=== PATIENT | female | born 1955 | race Caucasian/White ===

== ENCOUNTER 2025-01-07 11:04 | Inpatient (IN) | payer MEDICARE, MEDICAID ==
[~2025-01-07] VITALS: Ht 149.9 cm; Wt 63.8 kg
[2025-01-07 15:31] LABS: BASOPHILS # (AUTO) 0.1 X10'3 (0-0.2); BASOPHILS % (AUTO) 0.9 % (0-1); EOSINOPHILS # (AUTO) 0.2 X10'3 (0-0.9); EOSINOPHILS % (AUTO) 2.6 % (0-6); HEMATOCRIT 43.1 % (35.0-45.0); HEMOGLOBIN 14.8 g/dl (12.0-16.0); LYMPHOCYTES # (AUTO) 1.4 X10'3 (1.1-4.8); LYMPHOCYTES % (AUTO) 21.2 % (21-51); MEAN CORPUSCULAR HEMOGLOBIN 34.5 PG (27.0-31.0); MEAN CORPUSCULAR HGB CONC 34.4 g/dL (33.0-36.5); MEAN CORPUSCULAR VOLUME 100.5 FL (78-98); MEAN PLATELET VOLUME 6.7 FL (7.4-10.4); MONOCYTES # (AUTO) 0.7 X10'3 (0-0.9); MONOCYTES % (AUTO) 10.1 % (2-12); NEUTROPHILS # (AUTO) 4.3 X10'3 (1.8-7.7); NEUTROPHILS % (AUTO) 65.2 % (42-75); PLATELET COUNT 200 X10'3 (140-440); RED BLOOD COUNT 4.29 X10'6 (4.20-5.60); RED CELL DISTRIBUTION WIDTH 13.9 % (11.5-14.5); WHITE BLOOD COUNT 6.6 X10'3 (4.5-11.0)
[2025-01-07 15:47] LABS: ALANINE AMINOTRANSFERASE 15 U/L (12-78); ALBUMIN 3.9 G/DL (3.4-5.0); ALBUMIN/GLOBULIN RATIO 1.1 (1.1-1.5); ALKALINE PHOSPHATASE 75 IU/L (46-116); ANION GAP 8 (8-16); ASPARTATE AMINO TRANSFERASE 21 U/L (10-37); BILIRUBIN,TOTAL 1.1 MG/DL (0.1-1.0); BLOOD UREA NITROGEN 18 MG/DL (7-18); BUN/CREATININE RATIO 20.7 (10.0-20.0); CHLORIDE 107 MMOL/L (99-107); CREATININE 0.87 MG/DL (0.40-0.90); GLUCOSE 92 MG/DL (70-104); MAGNESIUM 2.2 MG/DL (1.5-2.4); POTASSIUM 4.6 MMOL/L (3.5-5.1); PRO BRAIN NATRIURETIC PEPTIDE 200 PG/ML (0-125); SODIUM 141 MMOL/L (135-145); TOTAL CARBON DIOXIDE 25.6 MMOL/L (24-32); TOTAL PROTEIN 7.5 G/DL (6.4-8.2); eCRCL 40 ML/MIN; eGFR 64 ML/MIN
[2025-01-07] MEDS ORDERED: nitroGLYCERIN 0.4mg SUBLingual tab SL PRN (19:30)
[2025-01-07] MEDS ORDERED: aminophylline 500mg/20ml vial IV PRN (19:30)
[2025-01-07] MEDS ORDERED: metoprolol tartrate 1mg/ml inj IV PRN (19:30)
[2025-01-07] MEDS ORDERED: GADOTERATE MEGLUMINE 7.5 MMOL/15 ML VIAL IV ONE (21:31)
[2025-01-07] MEDS ORDERED: acetaminophen 325mg tablet PO PRN ×2 (21:50)
[2025-01-07] MEDS ORDERED: magnesium sulf-water 4G/100mL 100 ML IV PRN (21:50)
[2025-01-07] MEDS ORDERED: magnesium hydroxide 30ml (MOM) UD suspension PO PRN (21:50)
[2025-01-07] MEDS ORDERED: mag hydrox/Alum hydrox/simeth 30ml oral suspension PO PRN (21:50)
[2025-01-07] MEDS ORDERED: magnesium Cl slow-release 64mg tablet PO PRN (21:50)
[2025-01-07] MEDS ORDERED: potassium Cl 40MEQ/1/2NS 520ml 520 ML IV PRN (21:50)
[2025-01-07] MEDS ORDERED: magnesium sulf-water 2g/50mL 50 ML IV PRN (21:50)
[2025-01-07] MEDS ORDERED: potassium Cl 20 mEq SR tablet PO PRN ×2 (21:50)
[2025-01-07] MEDS ORDERED: albuterol 2.5 MG/3 ML nebule NEB PRN (21:55)
[2025-01-07 22:21] LABS: APTT 34 SECONDS (22-32); INR 1.1 INR; PROTHROMBIN TIME 11.2 SECONDS (9.0-12.0)
[2025-01-07 22:31] LABS: ABG BASE EXCESS -2.1 mmol/L (-2.0-3.0); ABG HCO3 21.6 mmol/L (21.0-28.0); ABG OXYGEN SATURATION 92.8 % (94.0-98.0); ALLEN'S TEST POSITIVE; FCOHb 0.1 % (0.5-1.5); FHHb 7.2 % (0.0-5.0); FMetHb 0.3 % (0.0-1.5); FO2Hb 92.4 % (94.0-98.0); MODE ROOM AIR; TOTAL HEMOGLOBIN 14.6 G/dl (12.0-16.0)
[2025-01-07 22:45] VITALS: BP 148/72; PULSE 61; RESP 16; TEMP 97.4; O2SAT 97
[2025-01-07] MEDS: Melatonin 3mg tablet PO ONE (23:40)
[2025-01-07] MEDS: ipratropium/albuterol 3ml nebule NEB PRN (23:42)
[2025-01-07 23:43] VITALS: PULSE 86; RESP 18; O2SAT 95
[2025-01-07 23:48] VITALS: PULSE 89; RESP 18
[2025-01-08] VITALS (31 sets, daily range): BP systolic 107–172; BP diastolic 48–102; PULSE 52–87; RESP 11–24; TEMP 97.4–98.2; O2SAT 91–100
[2025-01-08] MEDS ORDERED: DILT-88 PO (01:09)
[2025-01-08] MEDS ORDERED: METO-411 (01:09)
[2025-01-08] MEDS ORDERED: UMEC1DIS PO (01:09)
[2025-01-08] MEDS ORDERED: LOSA100T58 PO (01:09)
[2025-01-08] MEDS ORDERED: VALA100031 PO (01:09)
[2025-01-08] MEDS ORDERED: ZOLP10TA PO (01:09)
[2025-01-08] MEDS ORDERED: ALBU10.7 (01:09)
[2025-01-08] MEDS: normal saline 1000ml 1,000 ML IV SCH (01:13)
[2025-01-08 05:26] LABS: BASOPHILS % (AUTO) 0.8 % (0-1); EOSINOPHILS # (AUTO) 0.2 X10'3 (0-0.9); EOSINOPHILS % (AUTO) 3.4 % (0-6); HEMATOCRIT 37.6 % (35.0-45.0); HEMOGLOBIN 12.9 g/dl (12.0-16.0); LYMPHOCYTES # (AUTO) 1.5 X10'3 (1.1-4.8); MEAN CORPUSCULAR HEMOGLOBIN 34.4 PG (27.0-31.0); MEAN CORPUSCULAR HGB CONC 34.4 g/dL (33.0-36.5); MEAN PLATELET VOLUME 6.8 FL (7.4-10.4); MONOCYTES # (AUTO) 0.7 X10'3 (0-0.9); MONOCYTES % (AUTO) 11.4 % (2-12); NEUTROPHILS # (AUTO) 3.5 X10'3 (1.8-7.7); NEUTROPHILS % (AUTO) 59.4 % (42-75); PLATELET COUNT 162 X10'3 (140-440); RED BLOOD COUNT 3.76 X10'6 (4.20-5.60); RED CELL DISTRIBUTION WIDTH 13.4 % (11.5-14.5); WHITE BLOOD COUNT 5.9 X10'3 (4.5-11.0)
[2025-01-08 05:40] LABS: APTT 34 SECONDS (22-32); INR 1.1 INR; PROTHROMBIN TIME 11.3 SECONDS (9.0-12.0)
[2025-01-08 05:45] LABS: ALANINE AMINOTRANSFERASE 16 U/L (12-78); ALBUMIN 3.2 G/DL (3.4-5.0); ALBUMIN/GLOBULIN RATIO 1.1 (1.1-1.5); ALKALINE PHOSPHATASE 60 IU/L (46-116); ANION GAP 6 (8-16); ASPARTATE AMINO TRANSFERASE 10 U/L (10-37); BILIRUBIN,TOTAL 1.2 MG/DL (0.1-1.0); BLOOD UREA NITROGEN 14 MG/DL (7-18); BUN/CREATININE RATIO 15.6 (10.0-20.0); CALCIUM 8.4 MG/DL (8.5-10.1); CHLORIDE 109 MMOL/L (99-107); GLUCOSE 85 MG/DL (70-104); MAGNESIUM 2.2 MG/DL (1.5-2.4); PHOSPHORUS 3.3 MG/DL (2.3-4.5); POTASSIUM 4.1 MMOL/L (3.5-5.1); SODIUM 142 MMOL/L (135-145); TOTAL CARBON DIOXIDE 27.5 MMOL/L (24-32); TOTAL PROTEIN 6.1 G/DL (6.4-8.2); eCRCL 39 ML/MIN; eGFR 62 ML/MIN
[2025-01-08] MEDS: diphenhydrAMINE 25 MG/10 ML UD oral solution PO ONE (08:00)
[2025-01-08] MEDS: K and/or MAG REPLACEMENT MC SCH (08:00)
[2025-01-08] MEDS ORDERED: hydrocortisone 1% cream 28gm TP PRN (08:50)
[2025-01-08] MEDS: regadenoson 0.4mg/5ml syringe IV PRN (09:54)
[2025-01-08] MEDS ORDERED: BUPIVAcaine/PF 2.5mg/ml (0.25%) 10ml vial ONE ×2 (10:29→13:15)
[2025-01-08] MEDS ORDERED: INDOCYANINE GREEN 25 MG/10 ML VIAL IV ONE (10:29)
[2025-01-08] MEDS ORDERED: BUPIVACAINE liposomal/PF 13.3 MG/ML 10mL vial IM ONE (10:30)
[2025-01-08] MEDS: TALC 4 GM VIAL ***intrapleural administration only IX ONE (10:30)
[2025-01-08] MEDS ORDERED: propofol inj 20 ML IV ONE (11:22)
[2025-01-08] MEDS ORDERED: rocuronium 10mg/ml inj IV ONE ×2 (11:22)
[2025-01-08] MEDS ORDERED: sevoflurane 250ml liquid IH ONE (11:58)
[2025-01-08] MEDS ORDERED: midazolam 1 mg/ML 2ml injection ONE (12:03)
[2025-01-08] MEDS ORDERED: fentaNYL /PF 50mcg/ml 5ml ampule ONE (12:03)
[2025-01-08] MEDS: ceFAZolin 2gm in dextrose, iso 50 ML IV ONE (12:20)
[2025-01-08] MEDS ORDERED: albumin (Human) 5% 250ml 250 ML IV ONE (12:46)
[2025-01-08] MEDS: BUPIVACAINE liposomal/PF 13.3 MG/ML 10mL vial IM ONE (13:21)
[2025-01-08] MEDS ORDERED: labetalol 20mg/4ml (5mg/ml) syringe IV PRN (14:05)
[2025-01-08] MEDS ORDERED: morphine 2 MG/ML inj. syringe IV PRN (14:05)
[2025-01-08] MEDS ORDERED: ondansetron/PF 4mg/2ml inj IV PRN ×2 (14:05→15:10)
[2025-01-08] MEDS ORDERED: HYDROmorphone/PF 0.2 MG/ML SYRINGE IV PRN (14:05)
[2025-01-08] MEDS ORDERED: acetaminophen 1,000mg/100ml IV 100 ML IV PRN (14:05)
[2025-01-08] MEDS ORDERED: meperidine/PF 25mg/ml syringe IV PRN (14:05)
[2025-01-08] MEDS ORDERED: hydrALAZINE 20mg/ml inj. IV PRN (14:05)
[2025-01-08] MEDS: ringers solution, lacted 1,000 ML IV SCH (14:05)
[2025-01-08] MEDS ORDERED: acetaminophen 1,000mg/100ml IV 100 ML IV ONE (14:34)
[2025-01-08] MEDS ORDERED: glycopyrrolate 0.2mg/ml inj ONE (14:43)
[2025-01-08] MEDS ORDERED: neostigmine methylsulfate 1 MG/ML 10ml vial ONE (14:43)
[2025-01-08] MEDS ORDERED: sugammadex 200mg/2ml injection IV ONE (15:05)
[2025-01-08] MEDS ORDERED: METO-384 PO (15:09)
[2025-01-08] MEDS: potassium Cl 20mEq in D5-NS 1,000 ML IV SCH (15:10)
[2025-01-08] MEDS ORDERED: albuterol 2.5 MG/3 ML nebule NEB PRN ×3 (15:10→20:35)
[2025-01-08] MEDS ORDERED: metoclopramide 5 mg/ml inj IV PRN (15:10)
[2025-01-08] MEDS ORDERED: HYDROmorphone inj. 0.5 MG/0.5 ML DISP.SYRIN IV PRN (15:10)
[2025-01-08] MEDS ORDERED: morphine 4 MG/ML inj SYRINge IV PRN (15:10)
[2025-01-08] MEDS ORDERED: METO-411 PO (15:11)
[2025-01-08] MEDS ORDERED: ALBU17AE26 PO (15:13)
[2025-01-08] MEDS ORDERED: ketorolac trometh 15mg/ml vial 15 MG/ML ML ONE (15:15)
[2025-01-08] MEDS: morphine 4 MG/ML inj SYRINge IV PRN (15:16)
[2025-01-08] MEDS: ketorolac trometh 15mg/ml vial 15 MG/ML ML IV SCH (15:19)
[2025-01-08 15:23] LABS: ABG BASE EXCESS -8.4 mmol/L (-2.0-3.0); ABG HCO3 18.1 mmol/L (21.0-28.0); ABG OXYGEN SATURATION 98.7 % (94.0-98.0); ABG PCO2 (T) 40.1 mmHg (32.0-45.0); ABG PO2 (T) 130.8 mmHg (83.0-108.0); FCOHb 0.7 % (0.5-1.5); FHHb 1.3 % (0.0-5.0); FLOW 10 L/min; FMetHb 0.3 % (0.0-1.5); FO2Hb 97.7 % (94.0-98.0); MODE MASK - SIMPLE; PATIENT TEMPERATURE 36.5; TOTAL HEMOGLOBIN 13.1 G/dl (12.0-16.0)
[2025-01-08] MEDS: HYDROmorphone/PF 0.2 MG/ML SYRINGE IV PRN (15:23)
[2025-01-08] MEDS ORDERED: ceFAZolin inj. 1,000 MG in dextrose 5%-water 50ml 50 ML IV SCH (16:00)
[2025-01-08] MEDS: HYDROcodone/acetaminophen 10/325mg tab PO PRN (17:27)
[2025-01-08] MEDS: ondansetron/PF 4mg/2ml inj IV PRN (17:39)
[2025-01-08] MEDS: ceFAZolin 1GM/D5W- ADD-VANTAGE 50 ML IV SCH (17:40)
[2025-01-08] MEDS ORDERED: zolpidem 5mg tablet PO PRN (17:55)
[2025-01-08] MEDS ORDERED: ipratropium/albuterol 3ml nebule NEB SCH (19:00)
[2025-01-08] MEDS ORDERED: albuterol 2.5 MG/3 ML nebule NEB SCH (20:35)
[2025-01-08] MEDS ORDERED: diltiazem CD 120mg capsule (once-daily) PO SCH (21:00)
[2025-01-08] MEDS: gabapentin 300mg capsule PO SCH (22:06)
[2025-01-08] MEDS: hydrocortisone 1% cream 28gm TP SCH (22:07)
[2025-01-08] MEDS: albuterol 2.5 MG/3 ML nebule NEB SCH (22:57)
[2025-01-09] VITALS (17 sets, daily range): BP systolic 115–142; BP diastolic 53–106; PULSE 52–98; RESP 12–20; TEMP 97.4–98.8; O2SAT 86–100
[2025-01-09] MEDS: Permethrin Cream 60gm TP ONE (00:15)
[2025-01-09 06:01] LABS: BASOPHILS % (AUTO) 0.3 % (0-1); EOSINOPHILS # (AUTO) 0.1 X10'3 (0-0.9); HEMATOCRIT 37.5 % (35.0-45.0); HEMOGLOBIN 12.9 g/dl (12.0-16.0); LYMPHOCYTES # (AUTO) 0.8 X10'3 (1.1-4.8); LYMPHOCYTES % (AUTO) 8.6 % (21-51); MEAN CORPUSCULAR HEMOGLOBIN 34.7 PG (27.0-31.0); MEAN CORPUSCULAR HGB CONC 34.4 g/dL (33.0-36.5); MEAN CORPUSCULAR VOLUME 100.8 FL (78-98); MEAN PLATELET VOLUME 6.9 FL (7.4-10.4); MONOCYTES # (AUTO) 0.5 X10'3 (0-0.9); NEUTROPHILS # (AUTO) 7.6 X10'3 (1.8-7.7); NEUTROPHILS % (AUTO) 84.1 % (42-75); PLATELET COUNT 133 X10'3 (140-440); RED BLOOD COUNT 3.72 X10'6 (4.20-5.60); RED CELL DISTRIBUTION WIDTH 13.6 % (11.5-14.5)
[2025-01-09 06:07] LABS: APTT 34 SECONDS (22-32); INR 1.1 INR; PROTHROMBIN TIME 11.4 SECONDS (9.0-12.0)
[2025-01-09 06:17] LABS: ALANINE AMINOTRANSFERASE 20 U/L (12-78); ALBUMIN/GLOBULIN RATIO 1.2 (1.1-1.5); ALKALINE PHOSPHATASE 54 IU/L (46-116); ANION GAP 4 (8-16); ASPARTATE AMINO TRANSFERASE 33 U/L (10-37); BILIRUBIN,TOTAL 1.3 MG/DL (0.1-1.0); BLOOD UREA NITROGEN 9 MG/DL (7-18); CALCIUM 7.6 MG/DL (8.5-10.1); CHLORIDE 105 MMOL/L (99-107); CREATININE 0.69 MG/DL (0.40-0.90); GLUCOSE 126 MG/DL (70-104); MAGNESIUM 1.7 MG/DL (1.5-2.4); PHOSPHORUS 2.8 MG/DL (2.3-4.5); POTASSIUM 4.3 MMOL/L (3.5-5.1); SODIUM 137 MMOL/L (135-145); TOTAL CARBON DIOXIDE 28.3 MMOL/L (24-32); TOTAL PROTEIN 5.6 G/DL (6.4-8.2); eCRCL 51 ML/MIN; eGFR 84 ML/MIN
[2025-01-09] MEDS: potassium Cl 20mEq in D5-NS 1,000 ML IV SCH (07:10)
[2025-01-09] MEDS ORDERED: losartan 50mg tablet PO SCH (08:00)
[2025-01-09] MEDS: valacyclovir 500mg tablet PO SCH (08:08)
[2025-01-09] MEDS: metoprolol succinate 25mg (24-HOUR) SR. Tablet PO SCH (08:09)
[2025-01-09] MEDS: HYDROcodone/acetaminophen 10/325mg tab PO PRN (14:16)
[2025-01-09] MEDS: Ivermectin 3mg tablet PO SCH (15:25)
[2025-01-09] MEDS: ketorolac trometh 15mg/ml vial 15 MG/ML ML IV ONE (21:15)
[2025-01-09] MEDS: zolpidem 5mg tablet PO ONE (21:16)
[2025-01-10] VITALS (16 sets, daily range): BP systolic 109–127; BP diastolic 67–72; PULSE 54–96; RESP 14–18; TEMP 97.5–98.2; O2SAT 90–98
[2025-01-10 05:33] LABS: BASOPHILS % (AUTO) 0.5 % (0-1); EOSINOPHILS # (AUTO) 0.2 X10'3 (0-0.9); EOSINOPHILS % (AUTO) 1.9 % (0-6); HEMATOCRIT 37.1 % (35.0-45.0); HEMOGLOBIN 12.8 g/dl (12.0-16.0); LYMPHOCYTES % (AUTO) 12.1 % (21-51); MEAN CORPUSCULAR HEMOGLOBIN 34.6 PG (27.0-31.0); MEAN CORPUSCULAR HGB CONC 34.4 g/dL (33.0-36.5); MEAN CORPUSCULAR VOLUME 100.6 FL (78-98); MEAN PLATELET VOLUME 6.8 FL (7.4-10.4); MONOCYTES # (AUTO) 0.6 X10'3 (0-0.9); MONOCYTES % (AUTO) 6.8 % (2-12); NEUTROPHILS # (AUTO) 6.4 X10'3 (1.8-7.7); NEUTROPHILS % (AUTO) 78.7 % (42-75); PLATELET COUNT 147 X10'3 (140-440); RED BLOOD COUNT 3.69 X10'6 (4.20-5.60); RED CELL DISTRIBUTION WIDTH 13.5 % (11.5-14.5); WHITE BLOOD COUNT 8.2 X10'3 (4.5-11.0)
[2025-01-10 05:48] LABS: APTT 35 SECONDS (22-32); INR 1.1 INR; PROTHROMBIN TIME 11.8 SECONDS (9.0-12.0)
[2025-01-10 05:52] LABS: ALANINE AMINOTRANSFERASE 15 U/L (12-78); ALBUMIN 2.7 G/DL (3.4-5.0); ALBUMIN/GLOBULIN RATIO 0.9 (1.1-1.5); ALKALINE PHOSPHATASE 55 IU/L (46-116); ANION GAP 5 (8-16); ASPARTATE AMINO TRANSFERASE 31 U/L (10-37); BILIRUBIN,TOTAL 1.3 MG/DL (0.1-1.0); BLOOD UREA NITROGEN 11 MG/DL (7-18); BUN/CREATININE RATIO 13.8 (10.0-20.0); CALCIUM 8.2 MG/DL (8.5-10.1); CHLORIDE 110 MMOL/L (99-107); GLUCOSE 93 MG/DL (70-104); MAGNESIUM 1.8 MG/DL (1.5-2.4); PHOSPHORUS 2.7 MG/DL (2.3-4.5); POTASSIUM 4.9 MMOL/L (3.5-5.1); SODIUM 142 MMOL/L (135-145); TOTAL PROTEIN 5.7 G/DL (6.4-8.2); eCRCL 44 ML/MIN; eGFR 71 ML/MIN
[2025-01-10] MEDS: zolpidem 5mg tablet PO PRN (21:53)
[2025-01-11] VITALS (9 sets, daily range): BP systolic 121–157; BP diastolic 62–82; PULSE 82–101; RESP 15–22; TEMP 97.5–98.7; O2SAT 90–97
[2025-01-11 06:47] LABS: BASOPHILS % (AUTO) 0.3 % (0-1); EOSINOPHILS # (AUTO) 0.2 X10'3 (0-0.9); EOSINOPHILS % (AUTO) 1.8 % (0-6); HEMOGLOBIN 12.2 g/dl (12.0-16.0); LYMPHOCYTES # (AUTO) 0.9 X10'3 (1.1-4.8); LYMPHOCYTES % (AUTO) 10.6 % (21-51); MEAN CORPUSCULAR HEMOGLOBIN 35.3 PG (27.0-31.0); MEAN CORPUSCULAR VOLUME 101.1 FL (78-98); MONOCYTES # (AUTO) 0.7 X10'3 (0-0.9); MONOCYTES % (AUTO) 8.3 % (2-12); NEUTROPHILS # (AUTO) 6.6 X10'3 (1.8-7.7); PLATELET COUNT 166 X10'3 (140-440); RED BLOOD COUNT 3.47 X10'6 (4.20-5.60); RED CELL DISTRIBUTION WIDTH 13.4 % (11.5-14.5); WHITE BLOOD COUNT 8.4 X10'3 (4.5-11.0)
[2025-01-11 06:55] LABS: INR 1.1 INR; PROTHROMBIN TIME 11.3 SECONDS (9.0-12.0)
[2025-01-11 07:12] LABS: ALANINE AMINOTRANSFERASE 20 U/L (12-78); ALBUMIN 2.7 G/DL (3.4-5.0); ALBUMIN/GLOBULIN RATIO 0.9 (1.1-1.5); ALKALINE PHOSPHATASE 58 IU/L (46-116); ANION GAP 7 (8-16); ASPARTATE AMINO TRANSFERASE 23 U/L (10-37); BILIRUBIN,TOTAL 1.2 MG/DL (0.1-1.0); BLOOD UREA NITROGEN 11 MG/DL (7-18); BUN/CREATININE RATIO 15.3 (10.0-20.0); CALCIUM 8.1 MG/DL (8.5-10.1); CHLORIDE 108 MMOL/L (99-107); CREATININE 0.72 MG/DL (0.40-0.90); GLUCOSE 93 MG/DL (70-104); MAGNESIUM 1.8 MG/DL (1.5-2.4); PHOSPHORUS 2.8 MG/DL (2.3-4.5); POTASSIUM 4.7 MMOL/L (3.5-5.1); SODIUM 141 MMOL/L (135-145); TOTAL CARBON DIOXIDE 26.1 MMOL/L (24-32); TOTAL PROTEIN 5.8 G/DL (6.4-8.2); eCRCL 49 ML/MIN; eGFR 80 ML/MIN
[2025-01-11] MEDS: morphine 2 MG/ML inj. syringe IV PRN (20:48)
[2025-01-12] VITALS (9 sets, daily range): BP systolic 116–168; BP diastolic 84–94; PULSE 82–114; RESP 16–26; TEMP 97–98; O2SAT 95–98
[2025-01-12 06:36] LABS: BASOPHILS % (AUTO) 0.5 % (0-1); EOSINOPHILS # (AUTO) 0.1 X10'3 (0-0.9); EOSINOPHILS % (AUTO) 0.7 % (0-6); HEMATOCRIT 36.6 % (35.0-45.0); HEMOGLOBIN 12.6 g/dl (12.0-16.0); LYMPHOCYTES # (AUTO) 0.6 X10'3 (1.1-4.8); LYMPHOCYTES % (AUTO) 6.4 % (21-51); MEAN CORPUSCULAR HEMOGLOBIN 34.8 PG (27.0-31.0); MEAN CORPUSCULAR HGB CONC 34.5 g/dL (33.0-36.5); MEAN CORPUSCULAR VOLUME 101.1 FL (78-98); MEAN PLATELET VOLUME 6.9 FL (7.4-10.4); MONOCYTES # (AUTO) 0.7 X10'3 (0-0.9); MONOCYTES % (AUTO) 7.4 % (2-12); NEUTROPHILS # (AUTO) 8.1 X10'3 (1.8-7.7); PLATELET COUNT 164 X10'3 (140-440); RED BLOOD COUNT 3.62 X10'6 (4.20-5.60); RED CELL DISTRIBUTION WIDTH 13.5 % (11.5-14.5); WHITE BLOOD COUNT 9.5 X10'3 (4.5-11.0)
[2025-01-12 06:42] LABS: INR 1.1 INR; PROTHROMBIN TIME 11.6 SECONDS (9.0-12.0)
[2025-01-12 07:18] LABS: ALANINE AMINOTRANSFERASE 13 U/L (12-78); ALBUMIN 2.6 G/DL (3.4-5.0); ALBUMIN/GLOBULIN RATIO 0.7 (1.1-1.5); ALKALINE PHOSPHATASE 64 IU/L (46-116); ANION GAP 10 (8-16); ASPARTATE AMINO TRANSFERASE 25 U/L (10-37); BILIRUBIN,TOTAL 1.2 MG/DL (0.1-1.0); BLOOD UREA NITROGEN 10 MG/DL (7-18); BUN/CREATININE RATIO 14.1 (10.0-20.0); CALCIUM 8.3 MG/DL (8.5-10.1); CHLORIDE 106 MMOL/L (99-107); CREATININE 0.71 MG/DL (0.40-0.90); GLUCOSE 110 MG/DL (70-104); MAGNESIUM 1.6 MG/DL (1.5-2.4); POTASSIUM 4.7 MMOL/L (3.5-5.1); SODIUM 140 MMOL/L (135-145); TOTAL PROTEIN 6.1 G/DL (6.4-8.2); eCRCL 50 ML/MIN; eGFR 81 ML/MIN
[2025-01-12] MEDS: furosemide 20 MG/2 ML vial IV SCH (21:32)
[2025-01-13] VITALS (13 sets, daily range): BP systolic 102–167; BP diastolic 53–107; PULSE 79–96; RESP 14–20; TEMP 95–99.9; O2SAT 93–100
[2025-01-14] VITALS (19 sets, daily range): BP systolic 133–166; BP diastolic 82–94; PULSE 71–89; RESP 16–18; TEMP 97.4–99.7; O2SAT 91–100
[2025-01-14 11:31] LABS: ALANINE AMINOTRANSFERASE 23 U/L (12-78); ALBUMIN/GLOBULIN RATIO 0.7 (1.1-1.5); ALKALINE PHOSPHATASE 87 IU/L (46-116); ANION GAP 8 (8-16); ASPARTATE AMINO TRANSFERASE 30 U/L (10-37); BLOOD UREA NITROGEN 16 MG/DL (7-18); BUN/CREATININE RATIO 20.5 (10.0-20.0); CALCIUM 9.3 MG/DL (8.5-10.1); CHLORIDE 101 MMOL/L (99-107); CREATININE 0.78 MG/DL (0.40-0.90); GLUCOSE 86 MG/DL (70-104); SODIUM 138 MMOL/L (135-145); TOTAL CARBON DIOXIDE 29.5 MMOL/L (24-32); TOTAL PROTEIN 7.4 G/DL (6.4-8.2); eCRCL 45 ML/MIN; eGFR 73 ML/MIN
[2025-01-14 11:33] LABS: POTASSIUM 4.6 MMOL/L (3.5-5.1)
[2025-01-14 12:20] LABS: BASOPHILS # (AUTO) 0.1 X10'3 (0-0.2); BASOPHILS % (AUTO) 0.9 % (0-1); EOSINOPHILS # (AUTO) 0.3 X10'3 (0-0.9); EOSINOPHILS % (AUTO) 2.4 % (0-6); HEMATOCRIT 45.9 % (35.0-45.0); HEMOGLOBIN 15.6 g/dl (12.0-16.0); LYMPHOCYTES # (AUTO) 1.2 X10'3 (1.1-4.8); LYMPHOCYTES % (AUTO) 11.2 % (21-51); MEAN CORPUSCULAR HEMOGLOBIN 34.1 PG (27.0-31.0); MEAN CORPUSCULAR HGB CONC 33.9 g/dL (33.0-36.5); MEAN CORPUSCULAR VOLUME 100.3 FL (78-98); MEAN PLATELET VOLUME 6.8 FL (7.4-10.4); MONOCYTES # (AUTO) 1.4 X10'3 (0-0.9); MONOCYTES % (AUTO) 13.7 % (2-12); NEUTROPHILS # (AUTO) 7.5 X10'3 (1.8-7.7); NEUTROPHILS % (AUTO) 71.8 % (42-75); PLATELET COUNT 347 X10'3 (140-440); RED BLOOD COUNT 4.58 X10'6 (4.20-5.60); RED CELL DISTRIBUTION WIDTH 13.4 % (11.5-14.5); WHITE BLOOD COUNT 10.5 X10'3 (4.5-11.0)
[2025-01-14] MEDS: lactobacillus rhamnosus 10,000 MMU CELLS/CAPSULE PO SCH (20:31)
[2025-01-14] MEDS: enoxaparin 40mg/0.4ml syringe SUBCUT SCH (20:32)
[2025-01-15] VITALS (15 sets, daily range): BP systolic 103–126; BP diastolic 66–97; PULSE 75–101; RESP 12–22; TEMP 96.7–98.5; O2SAT 90–98
[2025-01-15] MEDS: pantoprazole 40mg Tablet.DR PO SCH (08:50)
[2025-01-15] MEDS: HYDROmorphone inj. 0.5 MG/0.5 ML DISP.SYRIN IV ONE (16:27)
[2025-01-16] VITALS (9 sets, daily range): BP systolic 115–134; BP diastolic 64–84; PULSE 67–93; RESP 14–20; TEMP 97–97.9; O2SAT 94–98
== END 2025-01-16 16:00 | disposition home or self-care (01) | DRG 163 ==
LOC: ER 11:06 → ED HOLD 20:27 → UNDOADMIN 20:27 → ED HOLD 21:49 → EDBEDREQ 22:04 → ED HOLD 23:07 → PCU 3S 23:07 → CICU 2S 01-08 14:50 → PCU 3S 01-08 15:57
PROVIDERS: ADMIT Surgery Surgical Critical Care; ATTEND Family Medicine
PROC: 8E0W4CZ Robotic Assisted Procedure of Trunk Region, Percutaneous Endoscopic Approach (ICD-10-PCS; 2025-01-08)
PROC: 0W9B30Z Drainage of Left Pleural Cavity with Drainage Device, Percutaneous Approach (ICD-10-PCS; 2025-01-08)
PROC: 07BD4ZZ Excision of Aortic Lymphatic, Percutaneous Endoscopic Approach (ICD-10-PCS; 2025-01-08)
PROC: 07B74ZZ Excision of Thorax Lymphatic, Percutaneous Endoscopic Approach (ICD-10-PCS; 2025-01-08)
PROC: 4A02XM4 Measurement of Cardiac Total Activity, External Approach (ICD-10-PCS; 2025-01-08)
PROC: 3E033HZ Introduction of Radioactive Substance into Peripheral Vein, Percutaneous Approach (ICD-10-PCS; 2025-01-08)
PROC: 0BTJ4ZZ Resection of Left Lower Lung Lobe, Percutaneous Endoscopic Approach (ICD-10-PCS; principal; 2025-01-08 11:58)
DX: C34.32 Malignant neoplasm of lower lobe, left bronchus or lung (principal); J96.01 Acute respiratory failure with hypoxia; J44.9 Chronic obstructive pulmonary disease, unspecified; B86 Scabies; D53.9 Nutritional anemia, unspecified; I10 Essential (primary) hypertension; Z87.891 Personal history of nicotine dependence; Z92.3 Personal history of irradiation; Z92.21 Personal history of antineoplastic chemotherapy
CPT/HCPCS: 36415; 36600; 70553; 71045; 71046; 78452; 80053; 82607; 82803; 83735; 83880; 84100; 84484; 85018; 85025; 85610; 85730; 86885; 86900; 86901; 87081; 92508; 92616; 93005; 93017; 94010; 94640; 94760; 97116; 97161; 97530; 97535; 99285; A4314; A4615; A4618; A6223; A6258; A6260; A6402; A6449; A7000; A7048; A9500; C1758; C9250; G0378; J0131; J0666; J0690; J1171; J1650; J1885; J1940; J2250; J2270; J2405; J2704; J2710; J2785; J3010; J3480; J3490; J7030; J7120; P9045; Q0163